=== PATIENT | male | born 2000 | race African-American/Black ===

== ENCOUNTER 2023-11-11 14:24 | Emergency (ER) | payer OTHER, SELFPAY ==
--- NOTE | ~2023-11-11 | XR_ITS ---
EXAMINATION: XR knee RT min 4V DATE: 11/11/2023 14:53 INDICATION: Right knee injury and pain. TECHNIQUE: 4 views of right knee were obtained. COMPARISON: None. FINDINGS: Bone alignment is normal. No fracture. Joint spaces are normal. No knee joint effusion. IMPRESSION: 1. Normal right knee. Reviewed, dictated and finalized at location E. IMPRESSION: 1. Normal right knee.
[2023-11-11 14:39] VITALS: BP 157/100; PULSE 86; RESP 18; TEMP 36.6; O2SAT 99
--- NOTE | 2023-11-11 15:06 | ED.LOWEXIN ---
HPI - Extremity Injury (Lower) General Chief Complaint: Extremity Injury, Lower Stated Complaint: right knee injury-fell a couple weeks ago Time Seen by Provider: 11/11/23 14:43 Source: patient Mode of arrival: ambulatory Limitations: no limitations History of Present Illness HPI Narrative: This is a 23 year old male that presents to the ER for right knee pain. Reports falling onto the right knee. Reports since he has had pain worse with weight bearing and relieved with rest. Denies fever, erythema, edema, decreased ROM or numbness. Related Data Allergies Allergy/AdvReac Type Severity Reaction Status Date / Time No Known Allergies Allergy Unverified 11/11/23 14:25 Review of Systems Review of Systems: CONSTITUTIONAL: Denies fever SKIN: Denies rash MUSCULOSKELETAL: Reports joint pain, and myalgia. NEUROLOGIC: Denies numbness, or weakness. All systems reviewed & are unremarkable except as noted in HPI and below PMFSH Past Medical History Medical History (Updated 11/11/23 @ 15:11 by Jocelyn Guzman PA-C) No active medical problems Social History Social History (Updated 11/11/23 @ 15:12 by Jocelyn Guzman PA-C) Substance use: never Exam Narrative: GENERAL: Well-appearing, well-nourished, and in no acute distress. HEAD: Normocephalic, atraumatic. EYES: EOMI. EXTREMITIES: Normal range of motion. No edema, erythema or obvious deformity. Normal DP pulse. Normal sensation SKIN: Warm, dry, no rash. NEURO: No focal deficits. Alert and oriented x3. PSYCH: Normal mood and affect Course Vital Signs Vital signs: Vital Signs Temperature 98 F 11/11/23 14:39 Pulse Rate 86 11/11/23 14:39 Respiratory Rate 18 11/11/23 14:39 Blood Pressure 157/100 H 11/11/23 14:39 Pulse Oximetry 99 11/11/23 14:39 Oxygen Delivery Room Air 11/11/23 14:39 Temperature 98 F 11/11/23 14:39 Pulse Rate 86 11/11/23 14:39 Respiratory Rate 18 11/11/23 14:39 Blood Pressure 157/100 H 11/11/23 14:39 Pulse Oximetry 99 11/11/23 14:39 Oxygen Delivery Room Air 11/11/23 14:39 MDM - Extremity Injury (Lower) MDM Narrative Medical decision making narrative: Patient presents to the ER for right knee pain after an injury a couple of weeks prior. He is neurologically intact. Right knee x-ray without acute osseous abnormalities. Patient placed in mamta wrap and given crutches. Instructed to rest, ice and take over the counter pain medication as needed. He is to follow up with PCP. He was given warnings to return to the ER Differential Diagnosis Differential diagnosis: Likely acute internal derangement of knee and other (contusion, fracture) Imaging Data Radiologist's impression: ITS Impressions Knee X-Ray 11/11/23 14:56 IMPRESSION: 1. Normal right knee. Critical Care Time Critical Care Time Critical Care Time: No Discharge Plan Discharge Clinical Impression: Acute pain of right knee Patient Disposition: Home, Self-Care Condition: Stable Instructions: Knee Pain (ED) Additional Instructions: Return to the ER if you experience fever, redness and swelling of your extremity, numbness or any other symptoms that are concerning to you Wear MAMTA wrap and use crutches. No weight on the affected leg until able to bear weight without pain. Ice and elevate extremity. Pain medication as needed and directed. Follow up with your doctor for further care. Follow-up/Referrals: PHYSICIAN,SHELL MACHINE OPERATOR [Non-Staff] - Lenin Segal MD [Physician] -
== END 2023-11-11 15:40 | disposition home or self-care (01) ==
LOC: ANHED 15:11
PROVIDERS: Emergency Provider Physician Assistant
DX: M25.561 Pain in right knee (principal); W19.XXXA Unspecified fall, initial encounter
CPT/HCPCS: 73564; 99283

== ENCOUNTER 2024-01-25 01:49 | Emergency (ER) | payer OTHER, SELFPAY ==
--- NOTE | ~2024-01-25 | XR_ITS ---
Portable chest x-ray Comparison: 09/30/2005 Clinical History: Chest pain Findings: Lungs are clear, without focal consolidation or pleural effusion. Cardiomediastinal silho uette is stable. Bones and soft tissues are unremarkable. Impression: Normal chest. Reviewed, dictated and finalized at location . Impression: Normal chest.
[2024-01-25 01:54] VITALS: BP 154/91; PULSE 80; RESP 18; TEMP 36.8; O2SAT 100
--- NOTE | 2024-01-25 01:55 | ECG_ITS ---
Test Date: 2024-01-25 01:59:24 Measurements Intervals [place] Rate: 75 P: 56 [place]: 178 QRS: 16 QRSD: 92 T: 46 QT: 329 QTc: 369 Interpretive Statements SINUS RHYTHM NORMAL ELECTROCARDIOGRAM No previous ECG available for comparison Electronically Signed On 01-25-2024 07:16:53 CDT by Jb Lebron M.D.
[2024-01-25] MEDS: ASPIRIN 81 MG CHEWABLE TABLET 324 MG PO (02:00)
[2024-01-25 02:05] VITALS: PULSE 80; O2SAT 100
[2024-01-25 02:12] LABS: Basophils Percent Auto 0.5 % (0.2-1.2); Eosinophils Absolute Auto 0.1 K/mm3 (0-0.3); Eosinophils Percent Auto 0.7 % (0-4.4); Hemoglobin 15.5 g/dL (14.0-18.0); Immature Granulocyte Absolute 0.03 K/mm3 (0.00-0.031); Immature Granulocyte Percent A 0.3 % (0-0.5); Lymphocytes Absolute Auto 2.53 K/mm3 (0.9-3.2); Lymphocytes Percent Auto 28.6 % (18.3-44.2); Mean Corpuscular HGB Conc 33.7 g/dl (32-36); Mean Corpuscular Volume 86.1 fl (80-100); Mean Platelet Volume 9.7 fl (7.4-10.4); Monocytes Absolute Auto 0.7 K/mm3 (0.1-0.6); Monocytes Percent Auto 7.9 % (2.6-8.5); Neutrophils Absolute Auto 5.5 K/mm3 (1.3-6.7); Platelet Count Result 301 k/mm3 (150-375); Red Blood Count 5.34 M/mm3 (4.6-6.20); Red Cell Distribution Width 12.5 % (11.5-14.5); White Blood Count 8.9 K/mm3 (4.5-10.0)
[2024-01-25 02:24] LABS: INR 1.1; Prothrombin Time 14.7 Seconds (11.1-14.7)
[2024-01-25 02:26] LABS: Partial Thromboplastin Time 34.5 Seconds (22.3-36.8)
[2024-01-25 02:28] LABS: Alanine Aminotransferase 13 U/L (6-50); Albumin Level 4.8 g/dL (3.5-5.1); Alkaline Phosphatase 83 U/L (38-126); Anion Gap 11 mmol/L (4-12); Aspartate Amino Transferase 25 U/L (17-59); Bilirubin,Total 0.5 mg/dL (0.2-1.3); Blood Urea Nitrogen 14 mg/dL (9-20); Calcium 9.4 mg/dL (8.4-10.2); Carbon Dioxide 25 mmol/L (22-30); Chloride 105 mmol/L (98-107); Estimated CRCL calculation 137 ml/min; Estimated Glomerular Filt Rate > 60; Glucose 100 mg/dL (65-110); Lipase 31 U/L (23-300); Sodium 141 mmol/L (137-145)
[2024-01-25 02:41] LABS: Troponin I < 0.012 ng/mL (0.000-0.034)
--- NOTE | 2024-01-25 03:47 | ED.CHESTPAIN ---
HPI - Chest Pain General Chief Complaint: Chest Pain Stated Complaint: chest tightness Time Seen by Provider: 01/25/24 03:22 History of Present Illness HPI narrative: Patient is a 21-year-old male who presents to the emergency department this morning complaining of chest pain and shortness of breath. Patient states that he was getting ready to go to sleep last night and started to have this shortness of breath and was concerned that he might be developing asthma since he has a strong family history of asthma. He is currently denying any chest pain and denies any similar symptoms in the past. Denies any recent URI symptoms, any cough or runny nose, any fevers or chills. No additional symptoms or concerns at this time. Related Data Allergies Allergy/AdvReac Type Severity Reaction Status Date / Time No Known Allergies Allergy Unverified 11/11/23 14:25 Review of Systems Review of Systems: All systems are reviewed and are negative unless stated otherwise in the HPI. [facility] Past Medical History Medical History No active medical problems Social History Social History Substance use: never Exam Narrative: General: Alert, awake, afebrile, in no acute distress. HEENT: PERRL, no rhinorrhea, no post nasal drip, oropharynx clear. Cardiovascular: Regular rate and rhythm, no murmurs, rubs or gallops, no peripheral edema. Respiratory: Clear to auscultation bilaterally, no tachypnea, no wheezing, no rhonchi, no rubs, no respiratory distress. Abdomen: Soft, nontender, nondistended, no rebound, no guarding, no peritoneal signs. Musculoskeletal: No joint swelling or deformity, normal muscle tone. Skin: No rashes or petechia, no signs of infection. Neurological: Alert and oriented to person, place, and time. Follows all commands. No focal deficits, speech is clear and fluent. Course Vital Signs Vital signs: Vital Signs Temperature 98.3 F 01/25/24 01:54 Pulse Rate 80 01/25/24 01:54 Respiratory Rate 18 01/25/24 01:54 Blood Pressure 154/91 H 01/25/24 01:54 Pulse Oximetry 100 01/25/24 01:54 Oxygen Delivery Room Air 01/25/24 01:54 Temperature 98.3 F 01/25/24 01:54 Pulse Rate 80 01/25/24 02:05 Respiratory Rate 18 01/25/24 01:54 Blood Pressure 154/91 H 01/25/24 01:54 Pulse Oximetry 100 01/25/24 02:05 Oxygen Delivery Room Air 01/25/24 02:05 MDM - Chest Pain MDM Narrative Medical decision making narrative: The patient was evaluated by myself in the emergency department. History is obtained from patient who is an independent historian and physical exam was performed. External medical records were reviewed at this time. IV was established and pertinent tests were ordered. EKG was obtained which revealed sinus rhythm rate of 75 beats per minute. No ST changes, T wave inversions or evidence of acute ischemia. EKG was independently interpreted by me and is currently pending official cardiology read. Laboratory results obtained revealing no acute process. Imaging studies obtained included CXR which was independently interpreted by me revealing no acute cardiopulmonary process, which is pending final radiology interpretation. Differential diagnosis considerations include acute anxiety reaction, stress reaction, asthma and acute coronary syndrome although unlikely given patient's low heart score of 0. Comorbidities impacting this visit include none. I have evaluated and discussed social determinants of health with the patient that could potentially impact subsequent diagnosis and treatment plans. On repeat assessment of the patient, reevaluation revealed that the patient is doing well and is in no acute distress. Patient symptoms have improved since he arrived to our emergency department. Repeat vital signs were all reviewed and noted to be stable. Differential diagnosis a
== END 2024-01-25 04:09 | disposition home or self-care (01) ==
PROVIDERS: Emergency Provider Emergency Medicine
DX: R07.89 Other chest pain (principal)
CPT/HCPCS: 36415; 71045; 80053; 83690; 84484; 85025; 85610; 85730; 93005; 99284; A9270

== ENCOUNTER 2024-02-19 15:58 | Emergency (ER) | payer OTHER, SELFPAY ==
--- NOTE | 2024-02-19 16:09 | ED.MALEGU ---
HPI - Male Genitourinary General Chief complaint: Urogenital-Male Stated complaint: urinary issue Time Seen by Provider: 02/19/24 16:21 Source: patient and RN notes reviewed Mode of arrival: ambulatory Limitations: no limitations History of Present Illness HPI Narrative: 24-year-old male presents with concern for 1 episode of hematuria last week. He reports he has been having low back pain so he was concerned about a urinary tract infection. He also reports 2 days ago he had a bowel movement and had bright red blood on the toilet paper. Reports he has not had any instance of the since then. He denies any abdominal pain, fever, nausea, vomiting, chills, sweats. He denies constipation. Reports he has several bowel movements daily. MD Complaint: other (Low back pain, 1 episode of hematuria) Related Data Home Medications Medication Instructions Recorded Confirmed No Home Medications 02/19/24 02/19/24 Allergies Allergy/AdvReac Type Severity Reaction Status Date / Time No Known Allergies Allergy Verified 02/19/24 16:20 Review of Systems Review of Systems: CONSTITUTIONAL: Denies malaise, chills, sweats, or fever. CARDIOVASCULAR: Denies chest pain, palpitations, or edema. RESPIRATORY: Denies cough or dyspnea. GASTROINTESTINAL: Denies abdominal pain, nausea, vomiting, diarrhea GENITOURINARY: Denies dysuria, frequency, urgency, suprapubic pressure. Denies flank pain. Reports 1 episode of hematuria. SKIN: Denies rash or itching. MUSCULOSKELETAL: Reports low back pain. Denies myalgia. All systems reviewed & are unremarkable except as noted in HPI and below PMFSH Past Medical History Medical History No active medical problems Social History Social History Substance use: never Comments At time of signature, agree with nursing past medical, surgical, social and family history. There is no relevant family history pertinent to the presenting complaint Exam Narrative: GENERAL: Well-appearing, well-nourished, and in no acute distress. HEAD: Normocephalic. EYES: PERRLA, conjunctivae clear. NECK: Supple. No lymphadenopathy CHEST: Clear to auscultation. No respiratory distress. HEART: Regular rate and rhythm. ABDOMEN: Soft, nontender upon palpation, nondistended, normal active bowel sounds, no palpable or pulsatile masses, no guarding. No CVA tenderness SKIN: Warm, dry, no rash. NEURO: Alert and oriented x3. PSYCH: Normal mood and affect Course Course Emergency Course: Patient is aware of diagnosis, understands and agrees to treatment plan. Anticipatory guidance given. Patient agrees to follow-up as directed and is aware of reasons to seek care at the emergency department. Portions of this record may have been created with voice recognition software Level of Care: Express Care Visit Vital Signs Vital signs: Reviewed. Critical Care Time Critical Care Time Critical Care Time: No Discharge Plan Discharge Clinical Impression: Screen for STD (sexually transmitted disease), Low back pain Patient Disposition: Home, Self-Care Condition: Stable Instructions: Acute Low Back Pain (ED) Additional Instructions: Back pain: Walking and other gentle exercising several times a week has been shown to improve back pain; bed rest is not recommended. Take Motrin 600-800mg every 6-8 hours with food for the next 2-3 days. You may apply heat or cold to the area as needed. If you experience any worsening pain, swelling, numbness, weakness please go to ER. Contact your doctor or go to the emergency department if you develop problems with bladder or bowel function, weakness or loss of feeling in one or both of your legs, or any other serious concerns. STDs: You have been tested for potential gonorrhea, chlamydia, and trichomoniasis today. You will receive a phone call in 2-3 days with the resul
[2024-02-19 16:13] VITALS: BP 144/85; PULSE 65; RESP 16; TEMP 36.3; O2SAT 100
[2024-02-19 16:24] LABS: EDUAAPPEAR Clear; EDUABILI Negative; EDUABLOOD Negative; EDUACOLOR1 Yellow; EDUAGLUCOSE Negative; EDUAKETONE Negative; EDUALEUKO Negative; EDUANITRATE Negative; EDUAPROTEIN Negative; EDUASPGRAVITY 1.025; EDUAUROBILI 0.2
[2024-02-19 20:57] LABS: Trichomonas Vag PCR NOT DETECTED (NOT DETECTE)
[2024-02-19 21:18] LABS: Chlamydia trachomatis NOT DETECTED (NOT DETECTE); Neisseria gonorrhoeae PCR NOT DETECTED (NOT DETECTE)
== END 2024-02-19 16:32 | disposition home or self-care (01) ==
PROVIDERS: Emergency Provider Nurse Practitioner
DX: M54.50 Low back pain, unspecified (principal); Z11.3 Encounter for screening for infections with a predominantly sexual mode of transmission
CPT/HCPCS: 81003; 87086; 87491; 87591; 87661; 99213; G0463

== ENCOUNTER 2024-06-02 14:22 | Emergency (ER) | payer OTHER, SELFPAY ==
[2024-06-02 14:31] VITALS: BP 146/92; PULSE 63; RESP 18; TEMP 37.3; O2SAT 99
--- NOTE | 2024-06-02 15:06 | ED.URI ---
HPI - URI/Sore Throat General Chief Complaint: Upper Respiratory Infection Stated Complaint: Sore Throat Time Seen by Provider: 06/02/24 15:22 Source: patient and RN notes reviewed Mode of arrival: ambulatory Limitations: no limitations History of Present Illness HPI Narrative: 24-year-old male presents with concern for sore throat that started a few days ago. He reports history of strep. He denies fever, aches, chills, sweats, runny nose, stuffy nose, cough, headache, stomach ache. Denies known sick contacts. Reports he has used throat spray. MD elicited complaint: sore throat Related Data Home Medications Medication Instructions Recorded Confirmed No Home Medications 02/19/24 06/02/24 Allergies Allergy/AdvReac Type Severity Reaction Status Date / Time No Known Allergies Allergy Verified 06/02/24 14:31 Review of Systems Review of Systems: CONSTITUTIONAL: Denies malaise, chills, sweats, or fever. EYES: Denies visual changes, redness, or discharge. ENT: Denies rhinorrhea, congestion, sinus pain, otalgia. Reports sore throat. CARDIOVASCULAR: Denies chest pain, palpitations, or edema. RESPIRATORY: Denies cough. Denies dyspnea. GASTROINTESTINAL: Denies abdominal pain, nausea, vomiting, diarrhea SKIN: Denies rash or itching. MUSCULOSKELETAL: Denies myalgia. NEUROLOGIC: Denies headache. All systems reviewed & are unremarkable except as noted in HPI and below PMFSH Past Medical History Medical History No active medical problems Social History Social History Substance use: never Comments At time of signature, agree with nursing past medical, surgical, social and family history. There is no relevant family history pertinent to the presenting complaint Exam Narrative: GENERAL: Well-appearing, well-nourished, and in no acute distress. HEAD: Normocephalic EYES: PERRLA, conjunctivae clear ENT: Nares clear, turbinates edematous and erythematous, clear discharge. Mucous membranes moist. TM pearly luna with dull light reflex bilaterally; no tragal tenderness. Oropharynx not erythematous without lesions. Tonsils not enlarged and without exudate, no drooling, no hoarseness, no trismus, uvula midline. NECK: Supple. No lymphadenopathy CHEST: Clear to auscultation, breath sounds equal. No wheezing, rhonchi, rales, or stridor. No respiratory distress, speaks in full sentences. HEART: Regular rate and rhythm. No murmur heard. SKIN: Warm, dry, no rash. NEURO: Alert and oriented x3. PSYCH: Normal mood and affect Course Course Emergency Course: Patient is aware of diagnosis, understands and agrees to treatment plan. Anticipatory guidance given. Patient agrees to follow-up as directed and is aware of reasons to seek care at the emergency department. Portions of this record may have been created with voice recognition software Level of Care: Express Care Visit Vital Signs Vital signs: Vital Signs Temperature 99.2 F 06/02/24 14:31 Pulse Rate 63 06/02/24 14:31 Respiratory Rate 18 06/02/24 14:31 Blood Pressure 146/92 H 06/02/24 14:31 Pulse Oximetry 99 06/02/24 14:31 Oxygen Delivery Room Air 06/02/24 14:31 Temperature 99.2 F 06/02/24 14:31 Pulse Rate 63 06/02/24 14:31 Respiratory Rate 18 06/02/24 14:31 Blood Pressure 146/92 H 06/02/24 14:31 Pulse Oximetry 99 06/02/24 14:31 Oxygen Delivery Room Air 06/02/24 14:31 Reviewed. MDM - URI/Sore Throat MDM Narrative Medical decision making narrative: Differential diagnosis considered: Lozada virus, strep pharyngitis, allergic rhinitis, upper respiratory tract infection, sinusitis, rhinosinusitis, nasopharyngitis. viral pharyngitis, otitis media, otitis externa, pneumonia, bronchitis, viral cough syndrome, viral syndrome, and influenza. Exam findings show no acute concerns or changes; patient is non-toxic appea
[2024-06-02 15:42] LABS: EDSTREPNEGPOS1 Negative (Negative)
== END 2024-06-02 15:55 | disposition home or self-care (01) ==
PROVIDERS: Emergency Provider Nurse Practitioner; PCP Physician Assistant
DX: J02.9 Acute pharyngitis, unspecified (principal)
CPT/HCPCS: 87081; 87880; 99213; G0463

== ENCOUNTER 2025-03-30 14:48 | Emergency (ER) | payer OTHER, SELFPAY ==
[2025-03-30 14:56] VITALS: BP 148/83; PULSE 89; RESP 20; TEMP 37; O2SAT 95
[2025-03-30 15:30] LABS: EDUAAPPEAR Clear; EDUABILI Negative (Negative); EDUABLOOD Trace (Negative); EDUACOLOR1 Yellow; EDUAGLUCOSE Negative (Negative); EDUAKETONE Negative (Negative); EDUALEUKO Negative (Negative); EDUANITRATE Negative (Negative); EDUAPH 6.5; EDUAPROTEIN Trace (Negative); EDUASPGRAVITY 1.025; EDUAUROBILI 0.2
--- NOTE | 2025-03-30 15:46 | ED_ITS ---
HPI - Male Genitourinary General Chief complaint: Urogenital-Male Stated complaint: fatigue Source: patient Mode of arrival: ambulatory Limitations: no limitations History of Present Illness HPI Narrative: 25 y/o male presented for Complaint of fatigue intermittently for about 2 weeks. He denies any associated symptoms. Endorses dark urine with odor x2 days. no treatment for symptoms. He works evening or night nurse supervisor. Related Data Home Medications ?Medication ?Instructions ?Recorded ?Confirmed ?Last Taken ?Type No Home Medications 02/19/24 03/30/25 Unknown History Allergies Allergy/AdvReac Type Severity Reaction Status Date / Time No Known Allergies Allergy Verified 03/30/25 14:59 Review of Systems Review of Systems: CONSTITUTIONAL: reports fatigue Denies body aches, fever, chills, or sweats. EYES: Denies visual changes, redness, or discharge. ENT: Denies rhinorrhea, congestion, sore throat, or otalgia. CARDIOVASCULAR: Denies chest pain, palpitations, or edema. RESPIRATORY: Denies cough or dyspnea. GASTROINTESTINAL: Denies abdominal pain, nausea, vomiting, or diarrhea. GENITOURINARY: reports cloudy urine Denies dysuria or hematuria. MUSCULOSKELETAL: Denies back pain, joint pain, or myalgia. NEUROLOGIC: Denies headache, numbness, tingling, or weakness. PSYCH: Denies depression or anxiety. All systems reviewed & are unremarkable except as noted in HPI and below PMFSH Past Medical History Medical History No active medical problems Social History Social History Substance use: never Comments At time of signature, I have reviewed and agree with nursing past medical, surgical, social and family history unless otherwise noted. Please see nursing chart for further information. There is no relevant family history pertinent to the presenting complaint Exam Narrative: GENERAL: Well-appearing EYES: EOMI. No redness or drainage. Conjunctivae normal. ENT: Mucous membranes pink and moist. No rhinorrhea. TMs Unable to visualize bilaterally due to excess cerumen. Throat normal. Uvula midline. NECK: Normal AROM. Supple. CHEST: No respiratory distress. Clear to auscultation. HEART: Regular rate and rhythm. No murmur appreciated. Normal peripheral pulses. ABDOMEN: Soft, nontender, nondistended, normal active bowel sounds. SKIN: Warm, dry, no rash. Capillary refill normal. Normal skin turgor. NEURO: No focal deficits. Alert and oriented x3. Gait steady. PSYCH: Normal affect. Course Course Emergency Course: Patient is aware of diagnosis, understands and agrees to treatment plan. Anticipatory guidance given. Patient agrees to follow-up as directed and is aware of reasons to seek care at the emergency department. Portions of this record may have been created with voice recognition software Level of Care: Express Care Visit Vital Signs Vital signs: Vital Signs Temperature 98.6 F 03/30/25 14:56 Pulse Rate 89 03/30/25 14:56 Respiratory Rate 20 03/30/25 14:56 Blood Pressure 148/83 H 03/30/25 14:56 Pulse Oximetry 95 03/30/25 14:56 Oxygen Delivery Room Air 03/30/25 14:56 Temperature 98.6 F 03/30/25 14:56 Pulse Rate 89 03/30/25 14:56 Respiratory Rate 20 03/30/25 14:56 Blood Pressure 148/83 H 03/30/25 14:56 Pulse Oximetry 95 03/30/25 14:56 Oxygen Delivery Room Air 03/30/25 14:56 MDM - Male Genitourinary MDM Narrative Medical decision making narrative: Discussed physical exam findings And urine dip. will culture. Patient requests STD testing. Denies Concern or known exposure. Advised supportive measures and signs/symptoms to go to the ER. Pt is appropriate for outpt treatment and f/u With PCP for further evaluation of fatigue. Differential Diagnosis Differential diagnosis: Likely urinary tract infection and other (anemia, dehydration, sepsis, arrhythmia, BPPV, labyrinthitis, vestibular neuritis, sinusitis, CVA, migraine) Lab Data Labs: Lab Results 03/30/25 Range/Units 15:02 POC Urine Color Yellow POC Urine Clarity Clear POC Urine pH 6.5 POC Ur Specif [place] 1.025 POC Urine Protein Trace (Negative) POC Ur Glucose (UA) Negative (Negative) POC Urine Ketones Negative (Negative) POC Urine Blood Trace (Negative) POC Urine Nitrite Negative (Negative) POC Urine Bilirubin Negative (Negative) POC Urine Urobilinogen 0.2 POC U Leukocyte Esteras Negative (Negative) Discharge Plan Discharge Clinical Impression: Fatigue Qualifiers: Fatigue type: unspecified Qualified Code(s): R53.83 - Other fatigue Patient Disposition: Home Condition: Stable Instructions: Antibiotic Form, Fatigue (ED) Additional Instructions: Change positions slowly Sit down immediately if you feel dizzy or lightheaded Increase water intake, stay hydrated Watch for worsening symptoms (headache, vision changes, dizziness that does not go away, chest pain, heart racing, sweating) Go to the ER for these symptoms or any other concerns. Your urine has been sent off to test for gonorrhea, chlamydia, and trichomonas infections. You will be called if any of your tests come back positive. These tests can take up to 7 days to come back. If your tests come back positive you will need further treatment, and you will need to notify any partners that you have so they can be tested and treated. To avoid reinfection, you are advised to abstain from sexual intercourse until you and sex partners have been treated (ie, after completing the 7-day antibiotic regimen, and any symptoms have resolved. If your symptoms worsen to include fever, abdominal pain, or back pain, please go to the hospital immediately. Patient Language: Ukrainian Prescriptions: No Action No Home Medications Follow-up/Referrals: UNKNOWN,DOCTOR [Primary Care Provider] - Time of Disposition: 15:57
[2025-03-30 20:32] LABS: Trichomonas Vag PCR NOT DETECTED (NOT DETECTE)
== END 2025-03-30 15:59 | disposition home or self-care (01) ==
PROVIDERS: Emergency Provider Nurse Practitioner Family
DX: R53.83 Other fatigue (principal)
CPT/HCPCS: 81003; 87086; 87491; 87591; 87661; 99213; G0463